=== PATIENT | female | born 1930 | race African-American/Black ===

== ENCOUNTER 2017-06-02 17:52 | Inpatient (IN) | payer OTHER ==
[~2017-06-02] VITALS: Ht 193 cm; Wt 65.3 kg
--- NOTE | ~2017-06-02 | EKG ---
[address] [address] ELECTROCARDIOGRAM REPORT Name: MICHAEL CARDOSO Room #: 439-P ADM IN M.R.#: [id number] Admission: 06/02/17 Attend Phys: Farhat Garnett Discharge: Date of : [birth year] Report #: [id number] THIS REPORT FOR: //name// [facility] ED Test Date: 2017-06-02 Test Time: 18:26:51 Pat Name: MICHAEL CARDOSO Department: Room: 439 Gender: F [employer] Harness As[employer]er: ALEXANDRA : 1930 Requested By: Josh Dawkins Order Number: [id number] MD: Anibal Lambert Measurements Intervals [place] Rate: 59 P: 61 MN: 179 QRS: 14 QRSD: 116 T: 33 QT: 468 QTc: 464 Interpretive Statements Sinus rhythm Left atrial enlargement Nonspecific intraventricular conduction delay No previous ECG available for comparison Electronically Signed On 06-03-2017 8:29:10 MEAT CUR[employer] by Anibal Lambert [email or web address] <ELECTRONICALLY SIGNED> By: Anibal Lambert MD 06/03/17 0829 1826 182 MD CONNOR Choe
[2017-06-02 18:01] VITALS: BP 180/62
[2017-06-02 18:34] LABS: HEMATOCRIT 36.8 % (37.0-47.0); HEMOGLOBIN 12.2 gm/dL (12.0-15.0); MCH 29.5 pg (26.0-34.0); MCHC 33.1 g/dL (28.0-37.0); MCV 89.1 fL (80.0-100.0); PLATELET COUNT 169 thou/uL (150-400); RBC 4.14 mil/uL (4.20-5.00); RDW 13.6 % (10.5-14.5); WBC 4.1 thou/uL (4.0-11.0)
[2017-06-02 18:36] LABS: MANUAL DIFF YES
[2017-06-02 18:48] LABS: CREATININE 0.7 mg/dL (0.6-1.0); POTASSIUM 3.4 mmol/L (3.5-5.1); TROPONIN-I 0.05 ng/mL (<0.06)
[2017-06-02 18:51] LABS: ABSOLUTE NEUTROPHILS 3.2 thou/uL (1.4-8.2); TOTAL CELL COUNT 100
[2017-06-02 18:54] LABS: CALCIUM 8.8 mg/dL (8.5-10.1)
[2017-06-02 19:23] LABS: ABG SAMPLE TYPE ARTERIAL; HCO3 26.9 mmol/L (22.0-26.0); LACTATE 1.04 mmol/L (0.5-2.0); O2(CT) 16.5 mL/dL (15.0-23.0); pH 7.458 (7.360-7.450); sO2 89.4 % (92.0-98.0); tCO2 28.1 mmol/L (24.0-30.0)
[2017-06-02 19:24] LABS: PO2 53.3 mmHg (80.0-100.0); STICK SITE LRA
[2017-06-02 19:25] LABS: PCO2 38.9 mmHg (35.0-45.0)
[2017-06-02 19:26] LABS: ABG COMMENT ROOM AIR
[2017-06-02 19:54] VITALS: BP 170/58
[2017-06-02 20:01] VITALS: BP 176/47
[2017-06-02] MEDS ORDERED: SYNTHROID100 MCG PO (20:55)
[2017-06-02] MEDS ORDERED: AZITHROMYCIN 2250 MG PO (20:58)
[2017-06-02] MEDS ORDERED: ARICEPT10 MG PO (20:58)
[2017-06-02] MEDS ORDERED: MUCINEX600 MG PO (20:59)
[2017-06-02 21:00] VITALS: BP 183/76
[2017-06-02] MEDS ORDERED: TYLENOL325 MG PO (21:01)
[2017-06-02] MEDS ORDERED: ROBITUSSIN100 MG/53 PO (21:01)
[2017-06-03 00:39] VITALS: BP 174/55
[2017-06-03 04:22] VITALS: BP 132/81
[2017-06-03 05:22] LABS: HEMATOCRIT 36.6 % (37.0-47.0); MCHC 32.7 g/dL (28.0-37.0); MCV 88.7 fL (80.0-100.0); RBC 4.13 mil/uL (4.20-5.00); RDW 13.4 % (10.5-14.5); WBC 4.9 thou/uL (4.0-11.0)
[2017-06-03 05:31] LABS: CALCIUM 8.6 mg/dL (8.5-10.1); CREATININE 0.7 mg/dL (0.6-1.0); POTASSIUM 3.3 mmol/L (3.5-5.1)
[2017-06-03 07:59] VITALS: BP 173/79
[2017-06-03 14:06] LABS: MAGNESIUM 1.7 mg/dL (1.8-2.4); POTASSIUM 3.4 mmol/L (3.5-5.1)
[2017-06-03 16:40] VITALS: BP 145/67
[2017-06-03 18:31] LABS: MAGNESIUM 1.7 mg/dL (1.8-2.4); POTASSIUM 3.5 mmol/L (3.5-5.1)
[2017-06-03 20:18] VITALS: BP 153/74
[2017-06-04 04:27] VITALS: BP 148/59
[2017-06-04 05:52] LABS: ABSOLUTE NEUTROPHILS 3.5 thou/uL (1.4-8.2); BASOPHILS 0.2 % (0.0-2.0); HEMATOCRIT 34.9 % (37.0-47.0); HEMOGLOBIN 11.6 gm/dL (12.0-15.0); MCH 29.5 pg (26.0-34.0); MCHC 33.1 g/dL (28.0-37.0); PLATELET COUNT 176 thou/uL (150-400); POLYS 73.8 % (36.0-66.0); RBC 3.92 mil/uL (4.20-5.00); RDW 13.4 % (10.5-14.5); WBC 4.7 thou/uL (4.0-11.0)
[2017-06-04 05:54] LABS: MANUAL DIFF NO
[2017-06-04 06:06] LABS: CALCIUM 8.9 mg/dL (8.5-10.1); CREATININE 0.7 mg/dL (0.6-1.0); POTASSIUM 3.8 mmol/L (3.5-5.1)
[2017-06-04 07:39] VITALS: BP 152/63
[2017-06-04 16:10] VITALS: BP 141/65
[2017-06-04 20:26] VITALS: BP 151/55
[2017-06-05 04:49] LABS: ABSOLUTE NEUTROPHILS 3.6 thou/uL (1.4-8.2); BASOPHILS 0.3 % (0.0-2.0); EOSINOPHILS 0.3 % (0.0-3.0); HEMATOCRIT 34.4 % (37.0-47.0); HEMOGLOBIN 11.3 gm/dL (12.0-15.0); LYMPHOCYTES 17.5 % (24.0-44.0); MCH 29.3 pg (26.0-34.0); MCHC 32.8 g/dL (28.0-37.0); MCV 89.2 fL (80.0-100.0); MONOCYTES 10.5 % (1.0-8.0); PLATELET COUNT 178 thou/uL (150-400); POLYS 71.4 % (36.0-66.0); RBC 3.85 mil/uL (4.20-5.00); RDW 13.7 % (10.5-14.5)
[2017-06-05 04:50] LABS: CALCIUM 8.8 mg/dL (8.5-10.1); CREATININE 0.8 mg/dL (0.6-1.0); POTASSIUM 3.5 mmol/L (3.5-5.1)
[2017-06-05 04:57] LABS: MANUAL DIFF NO
[2017-06-05 05:43] VITALS: BP 155/62
[2017-06-05 07:47] VITALS: BP 149/60
[2017-06-05 15:38] VITALS: BP 151/49
[2017-06-05 20:00] VITALS: BP 158/62
[2017-06-06 04:00] VITALS: BP 189/70
[2017-06-06 08:00] VITALS: BP 181/67
[2017-06-06 16:00] VITALS: BP 172/81
[2017-06-06 19:49] VITALS: BP 137/61
[2017-06-07 04:27] VITALS: BP 155/71
[2017-06-07 08:00] VITALS: BP 179/81
[2017-06-07] MEDS ORDERED: LEVAQUIN 750 M750 MG PO (10:23)
[2017-06-07 12:32] VITALS: BP 179/81
[2017-06-07 16:00] VITALS: BP 173/82
== END 2017-06-07 18:03 | disposition home health service (06) | DRG 177 ==
LOC: ER 17:52 → 4S 19:48 → EROBS 19:48 → 4S 20:10 → ENTRNSPT 06-07 16:53 → 4S 06-07 18:03
PROVIDERS: Family Medicine; Nurse Practitioner Family; Physician Assistant
DX: J69.0 Pneumonitis due to inhalation of food and vomit (principal); J96.00 Acute respiratory failure, unspecified whether with hypoxia or hypercapnia; F03.90 Unspecified dementia, unspecified severity, without behavioral disturbance, psychotic disturbance, mood disturbance, and anxiety; E03.9 Hypothyroidism, unspecified; E87.6 Hypokalemia; Z79.899 Other long term (current) drug therapy; Z23 Encounter for immunization
CPT/HCPCS: 10100